=== PATIENT | female | born 1990 | race Two or more races ===

== ENCOUNTER 2023-07-06 09:31 | Outpatient (CLI) | payer OTHER | END 2023-07-06 09:43 | disposition home or self-care (01) | LOC: RAD 09:31 | PROVIDERS: ATTEND Student in an Organized Health Care Education/Training Program | DX: N84.0 Polyp of corpus uteri (principal); D25.0 Submucous leiomyoma of uterus ==

== ENCOUNTER 2023-10-06 14:00 | Outpatient (CLI) | payer OTHER | END 2023-10-06 14:01 | disposition home or self-care (01) | LOC: PRENATAL 14:00 | PROVIDERS: ATTEND Obstetrics & Gynecology Maternal & Fetal Medicine | DX: O36.80X0 Pregnancy with inconclusive fetal viability, not applicable or unspecified (principal); Z36.82 Encounter for antenatal screening for nuchal translucency ==

== ENCOUNTER → 2024-01-05 14:16 | Outpatient (CLI) | payer OTHER | END | disposition home or self-care (01) | LOC: PRENATAL 14:16 | PROVIDERS: ATTEND Obstetrics & Gynecology Maternal & Fetal Medicine | DX: O35.3XX0 Maternal care for (suspected) damage to fetus from viral disease in mother, not applicable or unspecified (principal); O44.00 Complete placenta previa NOS or without hemorrhage, unspecified trimester; Z3A.25 25 weeks gestation of pregnancy ==

== ENCOUNTER 2024-03-28 08:07 | Outpatient (CLI) | payer OTHER | END 2024-03-28 08:08 | disposition home or self-care (01) | LOC: PRENATAL 08:07 | PROVIDERS: ATTEND Obstetrics & Gynecology Maternal & Fetal Medicine | DX: O26.849 Uterine size-date discrepancy, unspecified trimester (principal); O36.8199 Decreased fetal movements, unspecified trimester, other fetus; Z3A.36 36 weeks gestation of pregnancy ==

== ENCOUNTER 2024-04-14 02:09 | Inpatient (IN) | payer OTHER ==
[2024-04-07 09:22] LABS: URINE APPEARANCE Clear; URINE BILIRRUBIN Negative (NEGATIVE); URINE BLOOD Negative; URINE COLOR Yellow; URINE GLUCOSE Negative (NEGATIVE); URINE KETONE Trace (NEGATIVE); URINE LEUKOCYTE Small; URINE NITRATE Negative; URINE PROTEIN Negative (NEGATIVE)
[2024-04-07 09:27] LABS: URINE BACTERIA 189.6 uL (0.0-1933); URINE EPITHELIAL CELLS 13.7 uL (0.0-38.8); URINE WBC 15.4 uL (0.0-23.2)
[2024-04-07 09:35] LABS: HEMATOCRIT 36.5 % (36.0-45.00); HEMOGLOBIN 12.4 g/dL (12.0-15.00); MEAN CELL VOLUME 92.2 fL (80.00-100.00); MEAN CORPUSCULAR HEMOGLOBIN 31.3 pg (27.00-32.0); MEAN CORPUSCULAR HGB CONC 33.9 g/dl (32.0-36.0); PLATELET COUNT 230 K/uL (150-450); RED BLOOD COUNT 3.96 M/uL (4.00-6.00); RED CELL DISTRIBUTION WIDTH 13.6 % (11.5-14.5)
[2024-04-07 09:43] LABS: URINE CAST 0.29 uL (0.0-1.40); URINE RBC 0.7 uL (0.0-20.8)
[2024-04-07 10:05] LABS: PARTIAL THROMBOPLASTIN TIME 28.5 SECONDS (22.0-34.0); PROTHROMBIN TIME 10.9 SECONDS (9.0-11.5)
[2024-04-07 12:07] LABS: ALBUMIN 2.7 gm/dL (3.4-5.0); BILIRUBIN TOTAL 0.47 mg/dL (0.3-1.2); CREATININE SERUM 0.44 mg/dL (0.55-1.02); GFR 164.68; GLOBULINA 4.3 G/DL (2.4-3.5); POTASSIUM 3.88 mEq/L (3.5-5.1)
[~2024-04-14] VITALS: Ht 165.1 cm; Wt 71.2 kg
[2024-04-14] VITALS (7 sets, daily range): BP systolic 98–125; BP diastolic 56–75
[2024-04-14] MEDS ORDERED: AMPICILLIN SODIUM 2,000 MG VIAL ONE (02:19)
[2024-04-14] MEDS ORDERED: RINGERS SOLUTION,LACTATED 1,000 ML IV SCH (02:45)
[2024-04-14] MEDS ORDERED: AMPICILLIN SODIUM 2,000 MG VIAL IV ONE (02:45)
[2024-04-14] MEDS ORDERED: CHLORHEXIDINE GLUCONATE 120 ML BOTTLE TOP ONE ×2 (04:13→05:45)
[2024-04-14] MEDS ORDERED: OXYTOCIN 20 UNITS/1000ML RL PIGGYBAG IV ONE (04:13)
[2024-04-14] MEDS ORDERED: ERYTHROMYCIN BASE OPHT 1GM EACH TUBE OP ONE ×2 (04:13→05:45)
[2024-04-14] MEDS ORDERED: LIDOCAINE HCL 1% 10ML VIAL ONE (04:14)
[2024-04-14] MEDS ORDERED: LIDOCAINE HCL 1% 10ML VIAL IJ ONE (05:45)
[2024-04-14] MEDS ORDERED: OXYTOCIN 1,000 ML IV SCH (05:45)
[2024-04-14] MEDS ORDERED: ACETAMINOPHEN 500 MG GEL..CAP PO PRN (06:00)
[2024-04-14] MEDS ORDERED: ACETAMINOPHEN 500 MG GEL..CAP PO ONE (07:52)
[2024-04-14] MEDS ORDERED: PNV,CALCIUM 72/IRON/FOLIC ACID 1 TAB TABLET PO ONE (07:53)
[2024-04-14] MEDS ORDERED: AMPICILLIN SODIUM 1,000 MG VIAL IV SCH (08:00)
[2024-04-14] MEDS ORDERED: PNV,CALCIUM 72/IRON/FOLIC ACID 1 TAB TABLET PO SCH (09:00)
[2024-04-14 18:51] LABS: HEMATOCRIT 35.1 % (36.0-45.00); HEMOGLOBIN 11.6 g/dL (12.0-15.00); MEAN CELL VOLUME 92.4 fL (80.00-100.00); MEAN CORPUSCULAR HEMOGLOBIN 30.5 pg (27.00-32.0); PLATELET COUNT 191 K/uL (150-450); RED CELL DISTRIBUTION WIDTH 13.3 % (11.5-14.5)
[2024-04-15 00:54] VITALS: BP 101/64
[2024-04-15 07:53] VITALS: BP 106/70
[2024-04-15 15:04] VITALS: BP 102/69
[2024-04-16 00:26] VITALS: BP 105/66
[2024-04-16 08:00] VITALS: BP 105/72
== END 2024-04-16 15:03 | disposition home or self-care (01) | DRG 807 ==
LOC: OB/GYN 02:09 → LDR 02:09 → OB/GYN 05:14 → LDR 04-19 08:28
PROVIDERS: Obstetrics & Gynecology; ADMIT Student in an Organized Health Care Education/Training Program; ATTEND Student in an Organized Health Care Education/Training Program
PROC: 10E0XZZ Delivery of Products of Conception, External Approach (ICD-10-PCS; principal; 2024-04-14)
PROC: 0UQG7ZZ Repair Vagina, Via Natural or Artificial Opening (ICD-10-PCS; 2024-04-14)
PROC: 4A1HXCZ Monitoring of Products of Conception, Cardiac Rate, External Approach (ICD-10-PCS; 2024-04-14)
DX: O71.4 Obstetric high vaginal laceration alone (principal); Z37.0 Single live birth; Z3A.38 38 weeks gestation of pregnancy